=== PATIENT | male | born 1995 | race African-American/Black ===

== ENCOUNTER 2021-01-10 04:31 | Emergency (ER) | payer BC ==
[~2021-01-10] VITALS: Ht 180.3 cm; Wt 59.9 kg
[2021-01-10 04:43] VITALS: BP 118/71
[2021-01-10] MEDS ORDERED: PROPOFOL 200 MG/20 ML VIAL IV ONE (05:00)
--- NOTE | 2021-01-10 05:05 | NUR ---
25 Y/O MALE C/O RT SHOULDER PAIN X 1HR 1/2 AGO. +SWELLING, OBVIOUS DEFORMITY NOTED. 2-3DAYS AGO WENT TO THE ER TO HAVE HIS DISLOCATED SHOULDER POP BACK IN PLACE. TOOK NAPROXEN 1HR AGO WITH NO RELIEF. PT STATES 8/10 PAIN. NKDA. PMH: DISLOCATIONS, ADHD, EPILEPSY
--- NOTE | 2021-01-10 05:07 | NUR ---
PT GIVEN 100 MG PROPOFOL BY ERMD FOR CONSCIOUS SEDATION. SEE NOTES FOR FURTHER DETAILS.
--- NOTE | 2021-01-10 05:15 | NUR ---
PT AWAKE, A&OX4. RESPIRATIONS EVEN AND UNLABORED. CHEST RISE IS SYMMETRICAL. WILL CONTINUE TO MONITOR.
--- NOTE | 2021-01-10 05:39 | NUR ---
CALLED TO BEDSIDE APPROX 05:05 FOR CONSCIOUS SEDATION/PROCEDURE. PT TOLERATED WELL WILL CONTINUE TO MONITOR
[2021-01-10 05:45] VITALS: BP 118/71
--- NOTE | 2021-01-10 05:45 | NUR ---
Patient discharged with v/s stable. Written and verbal after care instructions given and explained. Patient verbalized understanding. Ambulatory with steady gait. All questions addressed prior to discharge. Advised to follow up with PMD.
--- NOTE | 2021-01-10 05:50 | NUR ---
PTS RIGHT SHOULDER WAS PLACED IN A IMOBOLIZER. P[place] [facility] [place]
== END 2021-01-10 05:45 | disposition home or self-care (01) ==
LOC: MED 04:31
DX: S43.084A Other dislocation of right shoulder joint, initial encounter (principal); F90.9 Attention-deficit hyperactivity disorder, unspecified type; W06.XXXA Fall from bed, initial encounter; Y93.89 Activity, other specified; Y92.89 Other specified places as the place of occurrence of the external cause; Y99.8 Other external cause status
CPT/HCPCS: 23650; 73030; 99152; 99285; J2704